=== PATIENT | male | born 1940 | race Caucasian/White ===

== ENCOUNTER 2017-07-01 18:16 | Emergency (ER) | payer MEDICARE ==
[~2017-07-01] VITALS: Ht 177.8 cm; Wt 79.4 kg
[~2017-07-01 18:16] MED LIST: ASPIRIN 325MG325 MG PO; ASPIRIN ADULT L81 M2 PO; ATORVASTATIN CA20 MG PO; BACTRIM 400 MG-1 TAB PO; BACTRIM DS 8001 TAB PO; BENAZEPRIL HYDR10 MG PO; CENTRUM SILVER1 TAB PO; DARVOCET-N 1001 EACH PO; FLECAINIDE ACET50 MG OR; FLEXERIL10 MG PO; KEFLEX 500MG.500 MG PO; LORTAB 5/500 501 TAB PO; MECLIZINE 25MG25 MG PO; MEDROL 4MG. DOSE4 MG PO; METOPROLOL SUCC50 M2 PO; NATURE'S BLEN1000 MG PO; OMEGA-31000 MG PO; OMEPRAZOLE20 M1 PO; OMEPRAZOLE20 MG PO; PRAVASTATIN 40M40 MG PO; RIFADIN 300MG300 MG PO
--- NOTE | 2017-07-01 19:35 | Urgent Treatment Center Report ---
History of Present Issue Date/Time Seen by Provider 07/01/171919 Visit Reason Pt arrived:Walked Presenting Problem:PT STATES APPROX 1530 HE WAS STUNG BY A WASP TO HIS R HAND. STATES PAIN, SWELLING AND REDNESS TO HAND AFTERWARDS THAT HAS SINCE IMPROVED. STATES TAKING BENADRYL AT 1545. STATES HE HAD A HEADACHE THAT HAS IMPROVED WELL. Location if Accident: Onset of symptoms date/time:07/01/1710/05/1530 or onset unknown for: Have you (or family members/close friends) recently traveled outside the [place]? N If Yes, where/when: Have you had exposure to infectious disease within the past month? TB? Other? Specify: Here w/ c/o swelling and redness to right hand due to a wasp sting at 1530. Saw the red wasp as he placed his hand down on the rail but it was too late. Immediate redness and swelling to right hand so took 25mg benadryl. Seemed to help and swelling, redness and headache had been improving until about 15 minutes ago (7:15pm) when it seems that the redness and swelling having started to slowly return. Denies SOA, throat swelling, difficulty breathing, wheezing. No known allergies to bees/wasp. Source patient, family Exam Limitations no limitations ALLERGIES Coded Allergies: No Known Allergies (03/13/16) Home Medications Reported Medications Metoprolol Succinate 50 MG PO DAILY #90 Flecainide Acetate 50 MG OR BID Omeprazole 20 MG PO DAILY Aspirin 81 MG PO DAILY MULTIVIT,THER IRON,CA,FA & MIN (Sm Therapeutic M Tablet) 1 TAB PO DAILY Mcintire-3 Fatty Acids ([employer] Blend Mcintire-3) 1,000 MG PO DAILY ATORVASTATIN CALCIUM (ATORVASTATIN 20MG) 20 TAB PO QHS History Medical History General CAD? No Angina: Yes AR: No Hypertension? Yes Hyperlipidemia? Yes CHF? No DVT? No PE? No COPD? No Asthma? No Anemia? No GERD? No Gastric ulcers? No GI Bleed? No Hernia? No Thyroid Problems? No Hypothyroidism? No CVA? No Seizures? No Diabetes? No Insulin Dependent: No Insulin Pump: No Home FSBS? No Renal Insuffiency? No UTI? No Stones? No BPH? No GB Disease: No Nephritic Syndrome? No Asplenia? No Hepatitis? No Sickle Cell Disease? No Arthritis? No Migraines? No Cataracts? No Glaucoma? No MRSA? Yes HIV? No TB? No Anxiety? No Depression? No Cancer? No More? No Immunization HX DT/Tetanus 1-4 YRS Flu 2011-FSN Pneumonia Received In Past Surgical Hx Previous Surgery?Y ORTHO ON RIGHT KNEE HERNIA 08/05/16 COLONOSCOPY 03/14/16 Family History Family HX Diabetes No CAD No Hypertension Yes Hyperlipidemia Yes Cancer Yes TB No Social History Smoking Hx Smoker: Never Smoker Tobacco: No Alcohol Alcohol: No Review of Systems All Other Systems Reviewed and Negative Constitutional see HPI, denies malaise, denies weakness Eyes denies inflammation ENT see HPI. Respiratory see HPI Cardiovascular denies chest pain, denies palpitations Gastrointestinal denies nausea Musculoskeletal see HPI Skin see HPI Psychiatric/Neurological denies numbness, denies tingling Physical Exam Vital Signs Vital Signs Date Time Temp Pulse Resp B/P Pulse O2 O2 Flow FiO2 Ox Delivery Rate 07/01 1840 97.6 52 20 125/68 95 General Appearance normal appearance, no apparent distress, standing in room, anxious about waiting to be seen Respiratory Status No: respiratory distress. Cardiovascular normal peripheral pulses (james radial pulses) Extremities mild swelling all right digits, moderate swelling w/ mild erythema dorsal surface right hand. Normal wrist and FA. FROM all right digits and right wrist. Right hand nontender Neurologic alert, no motor/sensory deficits, oriented x 3 Mental status normal mood/affect Skin see extremity Medical Decision Making LABS/Meds/Orders Pt receiving controlled substance in ED? No Results/Orders Current Medication Orders Sig/Ev Start time Last Medication Dose Route Stop Time Status Admin Dexamethasone Sodium 10 MG ONCE ONE 07/01 1930 DC 07/01 Phosphate IM 07/01 Diphenhydramine HCl 50 MG ONCE ONE 07/01 1930 DC 07/01 IM 07/01 Dexamethasone Sodium 0 .STK-MED ONE 07/01 1929 DC Phosphate .ROUTE Diphenhydramine HCl 0 .STK-MED ONE 07/01 1928 DC .ROUTE Progress [facility] Progress Notes Date 07/01/17 Time 1952 Comment Swelling and redness improving. pt ready to be discharged. Rvwd POC. Agrees to follow up if necessary. Departure Departure Time of Disposition 1952 Disposition DC Home or Self Care(routine) Clinical Impression Primary Impression: Wasp sting Qualifiers: Encounter type: initial encounter Injury intent: accidental or unintentional Qualified Code: T63.461A - Toxic effect of venom of wasps, accidental (unintentional), initial encounter Condition STABLE Referrals Kandice Slaughter APRN (Family) Immediately for new or worsening symptoms. You should notice improvement over the next 24-48 hours so if not, be sure to follow up Patient Instructions DI for Insect Bites and Stings, How to Care for an Insect Bite or Sting Additional Instructions Benadryl 25-50mg every 4-6 hours as needed for swelling, redness, itching. Use with caution as will cause drowsiness and therefore, can increase fall risk. If too drowsy, space out interval or take smaller dose. Rest Continue finger and wrist range of motion to promote circulation Ice 15-20min 3-4x/day Elevate to help w/ swelling Ibuprofen 400-600mg as needed unless primary care has told you to avoid ibuprofen, motrin, alevel advil, nsaids Discharge Counseling Counseled pt/family regarding diagnosis, medications/RX, home care, follow up needs at 1953
[2017-07-01 19:56] VITALS: BP 125/68
== END 2017-07-01 19:57 | disposition home or self-care (01) ==
LOC: UTC 18:16
DX: T63.461A Toxic effect of venom of wasps, accidental (unintentional), initial encounter (principal); M79.89 Other specified soft tissue disorders; I10 Essential (primary) hypertension; E78.5 Hyperlipidemia, unspecified; Y93.9 Activity, unspecified; Y92.9 Unspecified place or not applicable; Z79.82 Long term (current) use of aspirin; Z79.899 Other long term (current) drug therapy